=== PATIENT | male | born 1975 | race Hispanic/Latino ===

== ENCOUNTER 2022-09-23 10:15 | Emergency (ER) | payer SELFPAY ==
[~2022-09-23] VITALS: Ht 167.6 cm; Wt 75.7 kg
[2022-09-23] MEDS ORDERED: KETOROLAC TROMETHAMINE 30 MG/ML VIAL IM STA (10:36)
[2022-09-23] MEDS ORDERED: DEXAMETHASONE SOD PHOS 10 MG/1 ML VIAL IV STA (10:36)
[2022-09-23] MEDS ORDERED: METHOCARBAMOL500 MG PO (11:17)
[2022-09-23] MEDS ORDERED: NAPROSYN500 MG PO (11:17)
[2022-09-23] MEDS ORDERED: PREDNISONE20 MG PO (11:17)
== END 2022-09-23 11:21 | disposition home or self-care (01) ==
LOC: ER 10:28
DX: M54.41 Lumbago with sciatica, right side (principal)
CPT/HCPCS: 99282; J1100; J1885